=== PATIENT | male | born 1995 | race Caucasian/White ===

== ENCOUNTER 2024-09-24 00:24 | Emergency (ER) | payer SELFPAY ==
[~2024-09-24] VITALS: Ht 180.3 cm; Wt 72.7 kg
[2024-09-24 01:00] VITALS: TEMP 97.3
[2024-09-24] MEDS: SULFAMETHOX/TRIMETH DS 800-160 MG/TABLET PO ONE (01:23)
[2024-09-24] MEDS: CEPHALEXIN MONOHYDRATE 500 MG CAPSULE PO ONE (01:23)
[2024-09-24] MEDS: PERTUSS(ACELL),DIPH,TET/PF 0.5 ML SYRINGE [ADULT] IM. ONE (01:25)
[2024-09-24] MEDS: BACITRACIN 28 GM OINTMENT TP ONE (01:25)
[2024-09-24 01:30] VITALS: BP 129/70; PULSE 95; RESP 20; O2SAT 95
[2024-09-24] MEDS ORDERED: CEPH-558 PO (01:50)
[2024-09-24] MEDS ORDERED: SULF-261 PO (01:50)
[2024-09-24] MEDS ORDERED: BACI28.410 TP (01:50)
== END 2024-09-24 03:09 | disposition home or self-care (01) ==
LOC: EMS 00:25
DX: S83.92XA Sprain of unspecified site of left knee, initial encounter (principal); S40.812A Abrasion of left upper arm, initial encounter; S20.312A Abrasion of left front wall of thorax, initial encounter; W60.XXXA Contact with nonvenomous plant thorns and spines and sharp leaves, initial encounter; Y93.89 Activity, other specified; Y92.89 Other specified places as the place of occurrence of the external cause; Y99.8 Other external cause status
CPT/HCPCS: 90471; 90715; 99284